=== PATIENT | male | born 1965 | race Caucasian/White ===

== ENCOUNTER 2023-04-03 15:45 | Emergency (ER) | payer BC, OTHER ==
[2023-04-03 16:10] VITALS: BP 143/80; PULSE 99; RESP 16; TEMP 98.9; BMI 29.4
[2023-04-03] MEDS ORDERED: LIDOCAINE 5% TOPICAL PATCH TP ONE ×2 (17:57→18:12)
[2023-04-03] MEDS ORDERED: IBUPROFEN 400 MG TABLET (FP) PO ONE ×2 (17:57→18:01)
[2023-04-03] MEDS ORDERED: LIDOCAINE 5% TOPICAL PATCH ONE ×2 (18:01→18:14)
[2023-04-03] MEDS ORDERED: LIDOCAINE PATCH REMOVAL MC SCH ×2 (22:00)
== END 2023-04-03 18:27 | disposition home or self-care (01) ==
LOC: FER 15:45
DX: M54.50 Low back pain, unspecified (principal); M25.562 Pain in left knee; M79.662 Pain in left lower leg
CPT/HCPCS: 99283-25